=== PATIENT | female | born 2000 | race Two or more races ===

== ENCOUNTER 2025-02-03 01:24 | Emergency (ER) | payer OTHER ==
[~2025-02-03] VITALS: Ht 154.9 cm; Wt 56.7 kg
[2025-02-03] MEDS ORDERED: METHYLPREDNISOLONE SOD SUCC 125 MG VIAL IV STA (01:41)
[2025-02-03] MEDS ORDERED: DIPHENHYDRAMINE HCL 50 MG/ML VIAL 1ML IV STA (01:42)
[2025-02-03] MEDS ORDERED: FAMOtidine 10 MG/ML (4ML VIAL) IV PUSH STA (01:42)
[2025-02-03] MEDS ORDERED: EPINEPHRINE HCL/PF 1 MG/ML AMPUL SUBCUTANEO STA (01:43)
[2025-02-03] MEDS ORDERED: DIPHENHYDRAMINE HCL 50 MG/ML VIAL 1ML IM STA (01:44)
[2025-02-03] MEDS ORDERED: METHYLPREDNISOLONE SOD SUCC 125 MG VIAL IM STA (01:45)
[2025-02-03] MEDS ORDERED: METHYLPREDNISOLONE SOD SUCC 125 MG VIAL ONE (01:46)
[2025-02-03] MEDS ORDERED: FAMOTIDINE/PF 20 MG/2 ML VIAL ONE (01:46)
[2025-02-03] MEDS ORDERED: DIPHENHYDRAMINE HCL 50 MG/ML VIAL 1ML ONE (01:46)
[2025-02-03] MEDS ORDERED: EPINEPHRINE HCL/PF 1 MG/ML AMPUL ONE (01:47)
== END 2025-02-03 02:50 | disposition home or self-care (01) ==
LOC: ER 01:25
DX: R21 Rash and other nonspecific skin eruption (principal); T78.3XXA Angioneurotic edema, initial encounter
CPT/HCPCS: 96365; 96372; 99282; J1200 ×2; J3490 ×3